=== PATIENT | male | born 1950 | race Caucasian/White ===

== ENCOUNTER 2017-09-11 08:26 | Day surgery (SDC) | payer BC ==
[2017-09-07 18:33] VITALS: BMI 30.5
[2017-09-11] MEDS ORDERED: PROPOFOL 20 ML ONE ×2 (08:59)
[2017-09-11] MEDS ORDERED: LIDOCAINE HCL/PF 2% SDV 5ML VIAL ONE (09:01)
[2017-09-11 10:30] VITALS: TEMP 97.6
[2017-09-11 10:52] VITALS: BP 154/87; PULSE 76
== END 2017-09-11 10:55 | disposition home or self-care (01) ==
LOC: FASU-ENDO 08:26
PROVIDERS: ATTEND Internal Medicine Gastroenterology
PROC: 0DJD8ZZ Inspection of Lower Intestinal Tract, Via Natural or Artificial Opening Endoscopic (ICD-10-PCS; principal; 2017-09-11 09:56)
DX: Z86.010 Personal history of colon polyps (principal); Z83.71 Family history of colonic polyps; K57.30 Diverticulosis of large intestine without perforation or abscess without bleeding